=== PATIENT | female | born 1980 | race Caucasian/White ===

== ENCOUNTER 2017-09-14 17:22 | Emergency (ER) | payer OTHER ==
[~2017-09-14] VITALS: Ht 167.6 cm; Wt 63.0 kg
[~2017-09-14 17:22] MED LIST: LISD30 PO
[2017-09-14 17:24] VITALS: BP 116/71; PULSE 83; RESP 18; TEMP 98.4; O2SAT 100
[2017-09-14] MEDS ORDERED: SODIUM CHLOR 0.9% 1000 ML INJ 1,000 ML IV SCH (18:08)
[2017-09-14] MEDS ORDERED: ONDANSETRON HCL 4 MG/2 ML VIAL IVP ONE (18:15)
[2017-09-14] MEDS ORDERED: SODIUM CHLORIDE 0.9% FLUSH 10 ML FLUSH IV FLUSH PRN (18:15)
[2017-09-14] MEDS ORDERED: FAMOTIDINE 20 MG/2 ML VIAL IV PUSH ONE (18:15)
--- NOTE | 2017-09-14 18:23 | PD ---
HPI Chief Complaint: Abdominal Pain Time Seen by Provider: 17:57 Travel History International Travel<30 days: No Contact w/Intl Traveler<30days: No Traveled to known affect area: No History of Present Illness HPI Patient is a 37-year-old female with history of chronic abdominal pain who was recently diagnosed with hepatitis B as well as hepatitis C, presents to emergency room with complaints of "not feeling well." Patient reports that she was just seen at a prior hospital, reports that she was told that she had enlargement of her liver and pancreas on ultrasound of her abdomen. Patient reports that she does follow-up with shop steward, Dr. Rod, reports "I don' t like him and I want another GI doctor." Patient reports that she is still not feeling well after being discharged from the other hospital, reports that she feels nauseous and weak. Patient with no fever or chills, patient with abdominal pain which is chronic at this time. Patient requesting a "recheck." PFSH Past Medical History Cancer: No Cardiovascular Problems: No Diabetes: No Diminished Hearing: No Endocrine: No Genitourinary: No Hepatitis: No Hiatal Hernia: No Immune Disorder: No Medical other: Yes (HEP-B and HEP C and pancreatitic and liver pain) Musculoskeletal: No Neurologic: No Psychiatric: Yes (adhd) Reproductive: No Respiratory: No Thyroid Disease: No Tetanus Vaccination: < 5 Years Influenza Vaccination: No ?: Not LMP: Para: 1 Tubal Ligation: Yes Past Surgical History Surgical History: No Previous Surgery AICD: No Body Medical Devices: 2 clips on the left fallobian tube Gynecologic Surgery: Yes (tubaligation tubal fallobian tube removed) Joint Replacement: No Pacemaker: No Other Surgery: Yes Social History Alcohol Use: Yes (quit 1 yr) Tobacco Use: Yes (1/2 PPD) Substance Use: No Allergies-Medications (Allergen,Severity, Reaction): Coded Allergies: No Known Allergies (Verified Allergy, Unknown, 09/14/17) morphine (Verified Allergy, Unknown, Psychosis, 09/14/17) Reported Meds & Prescriptions Reported Meds & Active Scripts Active Reported Vyvanse (Lisdexamfetamine Dimesylate) 30 Mg Cap 30 Mg PO DAILY Review of Systems General / Constitutional: No: Fever, Chills Eyes: No: Visual changes HENT: No: Headaches Cardiovascular: No: Chest Pain or Discomfort Respiratory: No: Shortness of Breath Gastrointestinal: Positive: Nausea, Abdominal Pain, No: Vomiting, Diarrhea, Constipation Genitourinary: No: Dysuria Musculoskeletal: No: Pain Skin: No Rash Neurologic: No: Weakness, Headache Psychiatric: No: Anxiety, Depression Endocrine: No: Polydipsia Hematologic/Lymphatic: No: Easy Bruising Physical Exam Narrative GENERAL:NAD SKIN: Focused skin assessment warm/dry. HEAD: Atraumatic. Normocephalic. EYES: Pupils equal and round. No scleral icterus. No injection or drainage. ENT: No nasal bleeding or discharge. Mucous membranes pink and moist. NECK: Trachea midline. No JVD. CARDIOVASCULAR: Regular rate and rhythm. No murmur appreciated. RESPIRATORY: No accessory muscle use. Clear to auscultation. Breath sounds equal bilaterally. GASTROINTESTINAL: Abdomen soft, non-tender, nondistended. Hepatic and splenic margins not palpable. MUSCULOSKELETAL: No obvious deformities. No clubbing. No cyanosis. No edema. NEUROLOGICAL: Awake and alert. No obvious cranial nerve deficits. Motor grossly within normal limits. Normal speech. PSYCHIATRIC: Appropriate mood and affect; insight and judgment normal. Data Data Last Documented VS Vital Signs Date Time Temp Pulse Resp B/P (MAP) Pulse Ox O2 Delivery O2 Flow Rate FiO2 09/14/17 17:24 98.4 83 18 116/71 (86) 100 Room Air Orders Orders Complete Blood Count With Diff (09/14/17 18:08) Comprehensive Metabolic Panel (09/14/17 18:08) Lipase (09/14/17 18:08) Prothrombin Time / Inr (Pt) (09/14/17 18:08) Act Partial Throm Time (Ptt) (09/14/17 18:08) Urinalysis - C+S If Indicated (09/14/17 18:08) Iv Access Insert/Monitor (09/14/17 18:08) Ondansetron Inj (Zofran Inj) (09/14/17 18:15) Sodium Chlor 0.9% 1000 Ml Inj (Ns 1000 M (09/14/17 18:08) Sodium Chloride 0.9% Flush (Ns Flush) (09/14/17 18:15) Famotidine Inj (Pepcid Inj) (09/14/17 18:15) Ed Urine Pregnancytest Poc (09/14/17 18:08) Labs Laboratory Tests Test 09/14/17 18:17 09/14/17 18:30 White Blood Count 4.8 TH/MM3 Red Blood Count 3.74 MIL/MM3 Hemoglobin 11.6 GM/DL Hematocrit 33.9 % Mean Corpuscular Volume 90.8 FL Mean Corpuscular Hemoglobin 30.9 PG Mean Corpuscular Hemoglobin Concent 34.0 % Red Cell Distribution Width 15.1 % Platelet Count 244 TH/MM3 Mean Platelet Volume 8.1 FL Neutrophils (%) (Auto) 43.2 % Lymphocytes (%) (Auto) 47.2 % Monocytes (%) (Auto) 6.0 % Eosinophils (%) (Auto) 2.6 % Basophils (%) (Auto) 1.0 % Neutrophils # (Auto) 2.1 TH/MM3 Lymphocytes # (Auto) 2.3 TH/MM3 Monocytes # (Auto) 0.3 TH/MM3 Eosinophils # (Auto) 0.1 TH/MM3 Basophils # (Auto) 0.0 TH/MM3 CBC Comment DIFF FINAL Differential Comment Prothrombin Time 11.5 SEC Prothromb Time International Ratio 1.1 RATIO Activated Partial Thromboplast Time 29.2 SEC Blood Urea Nitrogen 5 MG/DL Creatinine 0.76 MG/DL Random Glucose 82 MG/DL Total Protein 6.9 GM/DL Albumin 2.8 GM/DL Calcium Level 8.2 MG/DL Alkaline Phosphatase 77 U/L Aspartate Amino Transf (AST/SGOT) 539 U/L Alanine Aminotransferase (ALT/SGPT) 511 U/L Total Bilirubin 0.6 MG/DL Sodium Level 139 MEQ/L Potassium Level 4.1 MEQ/L Chloride Level 102 MEQ/L Carbon Dioxide Level 32.4 MEQ/L Anion Gap 5 MEQ/L Estimat Glomerular Filtration Rate 86 ML/MIN Lipase 98 U/L Urine Color YELLOW Urine Turbidity HAZY Urine pH 6.0 Urine Specific Lewis 1.012 Urine Protein NEG mg/dL Urine Glucose (UA) NEG mg/dL Urine Ketones NEG mg/dL Urine Occult Blood NEG Urine Nitrite NEG Urine Bilirubin NEG Urine Urobilinogen LESS THAN 2.0 MG/DL Urine Leukocyte Esterase NEG Urine WBC LESS THAN 1 /hpf Urine Squamous Epithelial Cells 18 /hpf Urine Mucus FEW /lpf Microscopic Urinalysis Comment CULT NOT INDICATED MDM Medical Decision Making Medical Screen Exam Complete: Yes Emergency Medical Condition: Yes Medical Record Reviewed: Yes Interpretation(s) Vital Signs Date Time Temp Pulse Resp B/P (MAP) Pulse Ox O2 Delivery O2 Flow Rate FiO2 09/14/17 17:24 98.4 83 18 116/71 (86) 100 Room Air Differential Diagnosis Chronic pain, hepatitis, liver failure, electrolyte abnormality Narrative Course 37-year-old female who presents to emergency room with complaints of chronic abdominal pain with a recent diagnosis of hepatitis B and hepatitis C. Patient requesting recheck of her laboratory studies as well as requesting a shop steward for follow-up with as she does not like her current shop steward During the course of the patients emergency department visit, the patients history, examination, and differential diagnosis were reviewed with the patient. The patient was placed on a patient monitor with oximetry and frequent blood pressure monitoring. The patient had an IV access obtained and blood work sent for analysis. The patient was initially provided IVF as well as IV zofran. The patients laboratory studies were reviewed and remarkable for: Laboratory Tests Test 09/14/17 18:17 09/14/17 18:30 White Blood Count 4.8 TH/MM3 (4.0-11.0) Red Blood Count 3.74 MIL/MM3 (4.00-5.30) Hemoglobin 11.6 GM/DL (11.6-15.3) Hematocrit 33.9 % (35.0-46.0) Mean Corpuscular Volume 90.8 FL (80.0-100.0) Mean Corpuscular Hemoglobin 30.9 PG (27.0-34.0) Mean Corpuscular Hemoglobin Concent 34.0 % (32.0-36.0) Red Cell Distribution Width 15.1 % (11.6-17.2) Platelet Count 244 TH/MM3 (150-450) Mean Platelet Volume 8.1 FL (7.0-11.0) Neutrophils (%) (Auto) 43.2 % (16.0-70.0) Lymphocytes (%) (Auto) 47.2 % (9.0-44.0) Monocytes (%) (Auto) 6.0 % (0.0-8.0) Eosinophils (%) (Auto) 2.6 % (0.0-4.0) Basophils (%) (Auto) 1.0 % (0.0-2.0) Neutrophils # (Auto) 2.1 TH/MM3 (1.8-7.7) Lymphocytes # (Auto) 2.3 TH/MM3 (1.0-4.8) Monocytes # (Auto) 0.3 TH/MM3 (0-0.9) Eosinophils # (Auto) 0.1 TH/MM3 (0-0.4) Basophils # (Auto) 0.0 TH/MM3 (0-0.2) CBC Comment DIFF FINAL Differential Comment Prothrombin Time 11.5 SEC (9.8-11.6) Prothromb Time International Ratio 1.1 RATIO Activated Partial Thromboplast Time 29.2 SEC (24.3-30.1) Blood Urea Nitrogen 5 MG/DL (7-18) Creatinine 0.76 MG/DL (0.50-1.00) Random Glucose 82 MG/DL (74-106) Total Protein 6.9 GM/DL (6.4-8.2) Albumin 2.8 GM/DL (3.4-5.0) Calcium Level 8.2 MG/DL (8.5-10.1) Alkaline Phosphatase 77 U/L (45-117) Aspartate Amino Transf (AST/SGOT) 539 U/L (15-37) Alanine Aminotransferase (ALT/SGPT) 511 U/L (10-53) Total Bilirubin 0.6 MG/DL (0.2-1.0) Sodium Level 139 MEQ/L (136-145) Potassium Level 4.1 MEQ/L (3.5-5.1) Chloride Level 102 MEQ/L (98-107) Carbon Dioxide Level 32.4 MEQ/L (21.0-32.0) Anion Gap 5 MEQ/L (5-15) Estimat Glomerular Filtration Rate 86 ML/MIN (>89) Lipase 98 U/L (73-393) Urine Color YELLOW (YELLW/STRAW) Urine Turbidity HAZY (CLEAR) Urine pH 6.0 (5.0-8.5) Urine Specific Lewis 1.012 (1.002-1.035) Urine Protein NEG mg/dL (NEG-TRACE) Urine Glucose (UA) NEG mg/dL (NEG) Urine Ketones NEG mg/dL (NEG) Urine Occult Blood NEG (NEG) Urine Nitrite NEG (NEG) Urine Bilirubin NEG (NEG) Urine Urobilinogen LESS THAN 2.0 MG/DL (LESS Urine Leukocyte Esterase NEG (NEG) Urine WBC LESS THAN 1 /hpf (0-5) Urine Squamous Epithelial Cells 18 /hpf (0-5) Urine Mucus FEW /lpf (OCC) Microscopic Urinalysis Comment CULT NOT INDICATED Patient with transaminitis on lab work - patient reports that she was told that her LFT's were elevated at an outside hospital today. Patient feeling much better at this time. Patient will call for GI follow up. Signs and symptoms of when to return to the ER was reviewed with patient in detail. Diagnosis Primary Impression: Abdominal pain Qualified Codes: R10.11 - Right upper quadrant pain Additional Impression: Transaminitis Referrals: Ernie Burgess MD Patient Instructions: General Instructions Additional Instructions: Please provide patient with a copy of her studies at discharge Please follow up with your primary care doctor in 2-3 days Return to the ER if symptoms worsen or progress Return to the ER as needed Please follow up with shop steward as soon as possible Disposition: 01 DISCHARGE HOME Condition: Stable Savannah Babb DO Sep 14, 2017 18:23
[2017-09-14 18:25] LABS: AUTOMATED NEUTROPHIL # 2.1 TH/MM3 (1.8-7.7); EOSINOPHIL # 0.1 TH/MM3 (0-0.4); EOSINOPHIL % 2.6 % (0.0-4.0); HEMATOCRIT 33.9 % (35.0-46.0); HEMOGLOBIN 11.6 GM/DL (11.6-15.3); LYMPH % 47.2 % (9.0-44.0); LYMPHOCYTE # 2.3 TH/MM3 (1.0-4.8); MEAN CELL VOLUME 90.8 FL (80.0-100.0); MEAN CORPUSCULAR HEMOGLOBIN 30.9 PG (27.0-34.0); MEAN PLATELET VOLUME 8.1 FL (7.0-11.0); MONOCYTE # 0.3 TH/MM3 (0-0.9); NEUT % 43.2 % (16.0-70.0); PLATELET COUNT 244 TH/MM3 (150-450); RED BLOOD COUNT 3.74 MIL/MM3 (4.00-5.30); RED CELL DISTRIBUTION WIDTH 15.1 % (11.6-17.2); WHITE BLOOD COUNT 4.8 TH/MM3 (4.0-11.0)
[2017-09-14 18:37] LABS: INTERNATIONAL NORMALIZED RATIO 1.1 RATIO; PROTHROMBIN TIME - PATIENT 11.5 SEC (9.8-11.6)
[2017-09-14 18:46] LABS: BILIRUBIN, URINE NEG (NEG); BLOOD, URINE NEG (NEG); GLUCOSE,URINE NEG (NEG); KETONE, URINE NEG (NEG); MUCUS URINE FEW /lpf (OCC); NITRITE,URINE NEG (NEG); SQUAMOUS EPITHELIAL CELL URINE 18 /hpf (0-5); URINE COLOR YELLOW (YELLW/STRAW); URINE LEUKOCYTE ESTERASE NEG (NEG)
[2017-09-14 18:46] LABS: ALBUMIN 2.8 GM/DL (3.4-5.0); AST (GOT) 539 U/L (15-37); BICARBONATE 32.4 MEQ/L (21.0-32.0); BLOOD UREA NITROGEN 5 MG/DL (7-18); CALCIUM 8.2 MG/DL (8.5-10.1); CHLORIDE 102 MEQ/L (98-107); CREATININE 0.76 MG/DL (0.50-1.00); GLOMERULAR FILTRATION RATE 86 ML/MIN (>89); GLUCOSE,RANDOM 82 MG/DL (74-106); LIPASE 98 U/L (73-393); SODIUM (NA) 139 MEQ/L (136-145)
[2017-09-14 18:47] LABS: ALT (GPT) 511 U/L (10-53)
[2017-09-14 18:49] LABS: ALKALINE PHOSPHATASE 77 U/L (45-117); TOTAL BILIRUBIN ADULT 0.6 MG/DL (0.2-1.0); TOTAL PROTEIN 6.9 GM/DL (6.4-8.2)
== END 2017-09-14 20:39 | disposition home or self-care (01) ==
LOC: NEPD 17:22
DX: R10.11 Right upper quadrant pain (principal); R74.0 Nonspecific elevation of levels of transaminase and lactic acid dehydrogenase [LDH]; B19.10 Unspecified viral hepatitis B without hepatic coma; B19.20 Unspecified viral hepatitis C without hepatic coma; F90.9 Attention-deficit hyperactivity disorder, unspecified type; F17.200 Nicotine dependence, unspecified, uncomplicated; Z79.899 Other long term (current) drug therapy
CPT/HCPCS: 80053; 81001; 83690; 84703; 85025; 85610; 85730; 96374; 96375; 99284; J2405; J7030